=== PATIENT | female | born 2000 | race Caucasian/White ===

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

== ENCOUNTER → 2022-04-28 | Outpatient (CLI) | payer OTHER ==
--- NOTE | 2022-04-28 15:28 | US ---
EXAMINATION TYPE: US pelvic complete DATE OF EXAM: 04/28/2022 COMPARISON: NONE CLINICAL HISTORY: 21-year-old female O03.4. Hx miscarriage at 7 weeks. Patient has a little spotting now. . Rule out retained products of conception. TECHNIQUE: Transabdominal sonographic images of the pelvis were acquired. Transvaginal sonographic i mages were not performed. Patient refused transvaginal exam. Date of LMP: Unknown per patient. FINDINGS: EXAM MEASUREMENTS: Uterus: 8.6 x 3.7 x 3.2 cm Endometrial Stripe: Not well seen. Right Ovary: 3.1 x 2.1 x 1.9 cm Left Ovary: Not seen due to bowel gas 1. Uterus: Anteverted 2. Endometrium: Complex material seen within endometrium within the mid to lower uterus vascularity : 4.7 x 1.7 x 1.8 cm. 3. Right Ovary: Appears wnl 4. Left Ovary: Obscured 5. Bilateral Adnexa: Appears wnl 6. Posterior cul-de-sac: Appears wnl IMPRESSION: 1. Complex heterogeneous thickening along the mid to lower uterine endometrium measuring up to 4.7 x 1.7 x 1.8 cm. There is associated vascularity. Findings may be seen with retained products of concept ion. 2. Unable to visualize the left ovary.
== END | disposition home or self-care (01) ==
LOC: RADUSWWP 14:32
PROVIDERS: ATTEND Obstetrics & Gynecology
DX: O03.4 Incomplete spontaneous abortion without complication (principal); R93.89 Abnormal findings on diagnostic imaging of other specified body structures; Z3A.01 Less than 8 weeks gestation of pregnancy
CPT/HCPCS: 76856

== ENCOUNTER → 2023-05-12 | Outpatient (CLI) | payer OTHER ==
[2023-05-12 18:44] LABS: HCT 34.5 % (37.2-46.3); HGB 11.6 g/dL (12.0-15.0); MCH 31.7 pg (27.0-32.0); MCHC 33.6 g/dL (32.0-37.0); MCV 94.3 FL (80.0-97.0); Mean Platelet Volume 10.1 FL (9.5-12.2); NRBC Per 100 WBC 0 X 10*3/uL (0.00-0.01); Platelet Count 369 X 10*3/uL (140-440); RBC 3.66 X 10*6/uL (4.10-5.20); RDW 12.5 % (11.5-14.5)
== END | disposition home or self-care (01) ==
LOC: LABWHC1 14:02
PROVIDERS: ATTEND Obstetrics & Gynecology
DX: Z36.9 Encounter for antenatal screening, unspecified (principal)
CPT/HCPCS: 36415; 82950; 85027; 86850

== ENCOUNTER 2023-06-19 06:00 | Inpatient (IN) | payer OTHER ==
[2023-06-19] MEDS ORDERED: TERBUTALINE 1 MG/ML VIAL SQ PRN (06:27)
[2023-06-19] MEDS ORDERED: CARBOPROST TROMETHAMINE 250 MCG/ML 1 ML AMP IM PRN (06:27)
[2023-06-19] MEDS ORDERED: OXYTOCIN 10 UNIT/ML 1 ML VIAL IM PRN (06:27)
[2023-06-19] MEDS ORDERED: miSOPROStoL 200 MCG TAB PO PRN (06:27)
[2023-06-19] MEDS ORDERED: TRANEXAMIC 1,000 MG/100ML-NACL 1,000 MG in EMPTY BAG 1 BAG IV PRN (06:27)
[2023-06-19] MEDS ORDERED: METHYLERGONOVINE 0.2 MG/ML 1 ML AMP IM PRN (06:27)
[2023-06-19] MEDS: LACTATED RINGERS 1,000 ML IV SCH (06:37)
[2023-06-19 06:50] LABS: Basophils # (A) 0.1 k/uL (0-0.2); Basophils % (A) 0 %; Eosinophils # (A) 0.1 k/uL (0-0.7); Eosinophils % (A) 1 %; HCT 36.7 % (34.0-46.0); HGB 12.4 gm/dL (11.4-16.0); Lymphocytes # (A) 3.2 k/uL (1.0-4.8); Lymphocytes % (A) 22 %; MCH 31.7 pg (25.0-35.0); MCHC 33.7 g/dL (31.0-37.0); MCV 94.2 fL (80.0-100.0); Mean Platelet Volume 7.4; Monocytes # (A) 0.7 k/uL (0-1.0); Monocytes % (A) 5 %; Neutrophils # (A) 10.4 k/uL (1.3-7.7); Neutrophils % (A) 71 %; Platelet Count 386 k/uL (150-450); RDW 12.5 % (11.5-15.5); WBC 14.7 k/uL (3.8-10.6)
[2023-06-19 07:04] VITALS: RESP 16
[2023-06-19] MEDS: OXYTOCIN 30 UNITS/500 ML NS 30 UNIT in SALINE 1 500ML.BAG IV SCH (07:15)
[2023-06-19 08:09] LABS: Amphetamine Screen,Urine Not Detected (NotDetected); Barbiturate Screen,Urine Not Detected (NotDetected); Benzodiazepines Screen,Urine Not Detected (NotDetected); Cocaine Screen,Urine Not Detected (NotDetected); Methadone Screen, Urine Not Detected (NotDetected); Opiate Screen,Urine Not Detected (NotDetected); Oxycodone Screen, Urine Not Detected (NotDetected); Phencyclidine Screen,Urine Not Detected (NotDetected); Tricyclic Antidepressant,Urine Not Detected (NotDetected); Urn Cannabinoid Scrn Detected (NotDetected)
--- NOTE | 2023-06-19 09:32 | P.HPOB ---
History of Present Illness H&P Date: 06/19/23 Chief Complaint: gestational hypertension 22 year old presents at 38 weeks 6 days for induction of labor for gestational hypertenstion. HEr Cervix ix 3 cm dilated, 80% effaced, station. Is liz every few minutes. heart tones 140 with moderate variability and reactive. Review of Systems All systems: negative Constitutional: Denies chills, Denies fever Eyes: denies blurred vision, denies pain Ears, nose, mouth and throat: Denies headache, Denies sore throat Cardiovascular: Denies chest pain, Denies shortness of breath Respiratory: Denies cough Gastrointestinal: Denies abdominal pain, Denies diarrhea, Denies nausea, Denies vomiting Genitourinary: Denies dysuria, Denies hematuria Musculoskeletal: Denies myalgias Integumentary: Denies pruritus, Denies rash Neurological: Denies numbness, Denies weakness Psychiatric: Denies anxiety, Denies depression Endocrine: Denies fatigue, Denies weight change Past Medical History Past Medical History: Asthma History of Any Multi-Drug Resistant Organisms: None Reported, MRSA Date of last positivie culture/infection: 2012 MDRO Source:: right arm Past Surgical History: Adenoidectomy, Tonsillectomy Past Anesthesia/Blood Transfusion Reactions: No Reported Reaction Past Psychological History: ADD/ADHD, Anxiety, Depression Smoking Status: Current every day smoker Past Alcohol Use History: None Reported Past Drug Use History: Marijuana Medications and Allergies Home Medications Medication Instructions Recorded Confirmed Type No Known Home Medications 06/19/23 06/19/23 History Allergies Allergy/AdvReac Type Severity Reaction Status Date / Time No Known Allergies Allergy Verified 06/19/23 06:26 Exam Osteopathic Statement: *. No significant issues noted on an osteopathic structural exam other than those noted in the History and Physical/Consult. Vital Signs Temp Pulse Resp BP Pulse Ox 06/19/23 06:20 96.8 F L 103 H 16 130/81 97 Intake and Output 06/18/23 06/19/23 06/19/23 22:59 06:59 14:59 Other: Weight 108.862 kg Heart: Regular rate and rhythm Lungs: Clear to auscultation bilaterally Abdomen: Soft, nontender Extremities: Negative Homans sign Results Result Diagrams: 06/19/23 06:25 Abnormal Lab Results - Last 24 Hours (Table) 06/19/23 06/19/23 Range/Units 06:25 07:20 WBC 14.7 H (3.8-10.6) k/uL Neutrophils # 10.4 H (1.3-7.7) k/uL U Marijuana (THC) Screen Detected H (NotDetected) Assessment and Plan (1) Gestational [-induced] hypertension without significant proteinuria, complicating childbirth Current Visit: Yes Status: Acute Code(s): O13.4 - GESTATNL HTN WITHOUT SIGNIFICANT PROTEIN, COMP CHILDBIRTH SNOMED Code(s): 97662832 (2) Elective induction of labor planned Current Visit: Yes Status: Acute Code(s): LRS1439 - SNOMED Code(s): 382450132 Plan: 1. induction of labor with amniotomy and pitocin 2. anticipate normal vaginal delivery
[2023-06-19] MEDS: NALBUPHINE 10 MG/ML (10 ML MDV) IV PRN (14:05)
[2023-06-19] MEDS: LIDOCAINE 0.5% (PF) 5 MG/ML (50 ML SDV) SQ PRN (21:09)
[2023-06-19] MEDS ORDERED: ACETAMINOPHEN TAB 325 MG TAB PO PRN (21:55)
[2023-06-19] MEDS ORDERED: IBUPROFEN 600 MG TAB PO PRN (21:55)
[2023-06-20] MEDS: MEASLES-MUMPS-RUBELLA VACC/PF 12,500 UNIT/0.5 ML VIAL SQ ONE (04:51)
[2023-06-20] MEDS: Rhogam IMMUNE GLOBULIN 1,500 UNIT/1 ML IM ONE (04:57)
--- NOTE | 2023-06-20 07:59 | P.PROBDLV ---
Vaginal Delivery Note - . Vaginal Delivery Note: 22 year old presents at 38 weeks 6 days for induction of labor for gestational hypertenstion and IUGR. HEr Cervix ix 3 cm dilated, 80% effaced, station. Is liz every few minutes. heart tones 140 with moderate variability and reactive. Pitocin was started and amniotomy performed at 727 am with clear fluid noted. when she was very uncomfortable she did have some Nubain. She progressed slowly to complete around 1952. She pushed,And delivered a viable female over midline episiotomy at . Head delivered OA, anterior shoulder delivered gentle downward guidance of a posterior shoulder and rest of body. Nose and mouth bulb suctioned, cord clamped and cut, infant placed on mother's abdomen. Apgars 9, 9, weight 6 pounds 0.8 ounces. Placenta delivered spontaneously, intact with three-vessel cord at 2030. Vagina, cervix, and perineum were inspected. Second-degree midline laceration was repaired with 3-0 Vicryl. Estimated blood loss 300 mL. Mother and baby in stable condition.
--- NOTE | 2023-06-20 08:01 | P.DS ---
Providers Date of admission: 06/19/23 06:17 Expected date of discharge: 06/20/23 Attending physician: Theresa Garcia Primary care physician: Stated None - Discharge Diagnosis(es) (1) Gestational [-induced] hypertension without significant proteinuria, complicating childbirth Current Visit: Yes Status: Resolved (2) Elective induction of labor planned Current Visit: Yes Status: Resolved (3) Normal vaginal delivery Current Visit: Yes Status: Acute Hospital Course: Patient presented for induction of labor. She underwent a normal vaginal delivery. course has been uneventful. She denies nausea, vomiting, chest pain, shortness of breath or calf pain. Patient will be discharged home day #1 in stable condition to follow-up with me in 6 weeks. Plan - Discharge Summary New Discharge Prescriptions: New Ibuprofen [Motrin] 600 mg PO Q6H PRN #30 tab PRN Reason: Fever And/ Or Pain Discharge Medication List Ibuprofen [Motrin] 600 mg PO Q6H PRN #30 tab 06/20/23 [Rx] Follow up Appointment(s)/Referral(s): Theresa Garcia DO [Doctor of Osteopathic Medicine] - 6 Weeks (PP 08/08/2023 @ 2:00 PM) Discharge Disposition: HOME SELF-CARE
[2023-06-20 21:12] VITALS: BP 115/71; PULSE 86; TEMP 98
== END 2023-06-20 21:47 | disposition home or self-care (01) | DRG 560 ==
LOC: 4FBP 06:17
PROVIDERS: ADMIT Obstetrics & Gynecology; ATTEND Obstetrics & Gynecology
PROC: 10E0XZZ Delivery of Products of Conception, External Approach (ICD-10-PCS; principal; 2023-06-20)
PROC: 0W8NXZZ Division of Female Perineum, External Approach (ICD-10-PCS; principal; 2023-06-20)
PROC: 10907ZC Drainage of Amniotic Fluid, Therapeutic from Products of Conception, Via Natural or Artificial Opening (ICD-10-PCS; principal; 2023-06-20)
PROC: 3E033VJ Introduction of Other Hormone into Peripheral Vein, Percutaneous Approach (ICD-10-PCS; principal; 2023-06-20)
DX: O13.4 Gestational [pregnancy-induced] hypertension without significant proteinuria, complicating childbirth (principal); O99.334 Smoking (tobacco) complicating childbirth; F17.200 Nicotine dependence, unspecified, uncomplicated; O36.5930 Maternal care for other known or suspected poor fetal growth, third trimester, not applicable or unspecified; Z3A.38 38 weeks gestation of pregnancy; Z37.0 Single live birth; Z28.310 Unvaccinated for COVID-19; Z28.21 Immunization not carried out because of patient refusal
CPT/HCPCS: 80306; 85025; 85461; 86850; 86900; 86901; 90707